=== PATIENT | female | born 2000 | race Two or more races ===

== ENCOUNTER 2021-07-02 10:47 | Emergency (ER) | payer BC, OTHER ==
[~2021-07-02] VITALS: Ht 167.6 cm; Wt 94.3 kg
[2021-07-02] MEDS ORDERED: ONDANSETRON HCL 4 MG/2 ML VIAL IV ONE (12:00)
[2021-07-02] MEDS ORDERED: SODIUM CHLORIDE 0.9% 1,000 ML IV ONE ×2 (12:00→13:15)
[2021-07-02 12:05] VITALS: BP 121/85
[2021-07-02 12:29] LABS: Urine Bacteria FEW /hpf (None Seen); Urine Blood Negative /uL (Negative); Urine Mucus FEW (None Seen); Urine Specific Gravity 1.031 (1.001-1.035); Urine WBC 133 /hpf (0 - 5)
[2021-07-02 12:32] LABS: Albumin 4.5 g/dL (3.4-5.0); Calcium 9.3 mg/dL (8.5-10.1); Potassium 4.2 mmol/L (3.5-5.1)
[2021-07-02 12:36] LABS: BUN/Creatinine Ratio 12.9; Bilirubin, Total 1.2 mg/dL (0.2-1.0); Total Protein 8.2 g/dL (6.4-8.2)
[2021-07-02] MEDS ORDERED: cefTRIAXone 1GM/50ML D5W 50 ML IV ONE (13:00)
[2021-07-02] MEDS ORDERED: PROM25TA5 OR (14:10)
[2021-07-02] MEDS ORDERED: NITR-87 PO (14:10)
== END 2021-07-02 14:15 | disposition home or self-care (01) ==
LOC: ER 10:47
DX: O23.41 Unspecified infection of urinary tract in pregnancy, first trimester (principal); O21.9 Vomiting of pregnancy, unspecified; Z3A.01 Less than 8 weeks gestation of pregnancy
CPT/HCPCS: 36415; 76801; 80053; 81001; 84702; 96361; 96365; 96375; 99284; J0696; J2405; J7030